=== PATIENT | male | born 1960 | race Caucasian/White ===

== ENCOUNTER 2016-09-02 12:06 | Inpatient (IN) | payer BC ==
[2016-08-30 16:27] LABS: BASOPHILS 0.6 %; BASOPHILS ABSOLUTE 0.04 10/3/uL (0.0-0.16); EOSINOPHILS 4.7 %; EOSINOPHILS ABSOLUTE 0.32 10/3/uL (0.0-0.53); HEMATOCRIT 40.1 % (40.0-51.0); HEMOGLOBIN 13.7 g/dL (13.6-17.8); IMMATURE GRANULOCYTES 0.1 %; IMMATURE GRANULOCYTES ABSOLUTE 0.01 10/3/uL (0.0-0.11); LYMPHOCYTES 39.7 %; LYMPHOCYTES ABSOLUTE 2.71 10/3/uL (0.67-4.30); MANUAL DIFF NO %; MEAN CORPUS HGB CONC 34.2 g/dL (32.0-36.0); MEAN CORPUSCULAR HEMOGLOB 32.9 pg (26.0-34.0); MEAN CORPUSCULAR VOLUME 96.4 fL (80-100); MEAN PLATELET VOLUME 11.5 fL (9.2-13.0); MONOCYTES 11.1 %; MONOCYTES ABSOLUTE 0.76 10/3/uL (0.21-1.20); NEUTROPHILS 43.8 %; NEUTROPHILS ABSOLUTE 2.98 10/3/uL (2.02-8.40); PLATELET COUNT 155 10/3/uL (150-400); RBC DISTRIBUTION WIDTH 12.8 % (12.0-16.0); RED CELL COUNT 4.16 10/6/uL (4.7-6.1); WHITE BLOOD CELLS 6.8 10/3/uL (4.5-10.5)
[2016-08-30 16:37] LABS: PARTIAL THROMBO TIME 27.5 SEC (22.5-37.2); PROTIME (NOT ORD) 13.1 SEC (12.0-14.5)
[2016-08-30 16:42] LABS: ASCORBIC ACID (UR NOT ORDER) NEG (NEG); BILIRUBIN, URINE NEGATIVE (NEG); KETONE, URINE NEGATIVE (NEG); LEUKOCYTE ESTERASE(NOT OR NEG (NEG); WBC (NOT ORDERED) (RFLEX) < 1 (0-5)
[2016-08-30 16:46] LABS: A/G RATIO 1.1 (0.7-1.9); ALBUMIN 3.9 G/DL (3.5-5.0); ALKALINE PHOSPHATASE 76 U/L (45-117); BUN (BLOOD UREA NITROGEN) 13 MG/DL (6-23); CALCIUM, SERUM 8.4 MG/DL (8.5-10.4); CHLORIDE, SERUM 104 MMOL/L (96-112); CO2 (CARBON DIOXIDE) 29 MMOL/L (24-34); CREATININE 1.03 MG/DL (0.70-1.30); GFR AFRICAN AMERICAN 93 ML/MIN (>=60); GFR NON AFRICAN AMERICAN 80 ML/MIN (>=60); GLOBULIN 3.6 G/DL (2.5-4.1); GLUCOSE, SERUM 102 MG/DL (60-99); POTASSIUM, SERUM 4.2 MMOL/L (3.5-5.3); SGOT(AST) 21 U/L (5-40); SGPT(ALT) 28 U/L (5-65); SODIUM, SERUM 142 MMOL/L (135-148); TOTAL BILIRUBIN 0.3 MG/DL (0-1.2); TOTAL PROTEIN 7.5 G/DL (6.0-8.5)
--- NOTE | ~2016-09-02 | HP ---
History And Physical [id number] [place]. [address] NAME: EDUARDO JACKSON : 58 STATUS : ADM IN [facility]#: [id number] AGE: 56 ADM/REG DATE : 09/02/16 MR#: [id number] REPORT SERV DATE: 09/02/16 DICTATED BY: ARVIN RUIZ III DATE: 09/02/16 REPORT STATUS : Draft TRANSCRIBED BY: ANKIT DATE: 09/02/16 DATE OF ADMISSION: 09/02/2016 CHIEF COMPLAINT: Left hip pain. HISTORY: The patient is a 56-year-old black male, who complains of pain in his left hip and has so for many years. It has gotten progressively worse in the last six months to a year. He works at [employer] and is on his feet all day long, walking a long distance. He is now having a difficult time walking short distances. He complained of rest pain, night pain, all unrelieved with nonsteroidal anti-inflammatories, particularly Aleve and Naprosyn with minimal results. X-rays confirmed advanced osteoarthritis of his left hip, and he is admitted for left total hip arthroplasty. Risks, benefits, and expected outcomes have been explained, but not limited to blood clots, infection, neurovascular injuries, limb length discrepancies either real or perceived, postoperative dislocations, intraoperative fractures, and component failures. PAST MEDICAL HISTORY: Negative for high blood pressure, diabetes, liver, lung, or kidney problems. He does have a history of shortness of breath and swelling of the ankles. PREVIOUS SURGERIES: None. MEDICATIONS: Include naproxen, Aleve, methocarbamol, and aspirin. REVIEW OF SYSTEMS: Occasional alcohol and he smokes a pack a week. PHYSICAL EXAMINATION: GENERAL: He is alert and oriented x3. VITAL SIGNS: Stable. HEENT: Normocephalic, atraumatic. Pupils are equal, round, and reactive to light and accommodation. Extraocular muscles are intact. NECK: Supple. CHEST: Clear. HEART: Regular rate and rhythm without murmur. ABDOMEN: Benign, soft, and nontender. Positive bowel sounds. ORTHOPEDIC: Examination reveals marked tenderness to his left hip. He has flexion limited to about 7 degrees, internal rotation 10, external rotation 20, abduction 25, adduction 20. Could not do a [id number]-rh-[id number] positioning secondary to pain and loss of motion. He has pain with his passive range of motion. IMAGING: X-rays reveal advanced osteoarthritis of his left hip with efda-[id number] deformity. PLAN: Admission for left total hip arthroplasty. History And Physical [address] [place]. [facility] [place] [address] NAME: EDUARDO JACKSON : 58 STATUS : ADM IN [facility]#: [id number] AGE: 56 ADM/REG DATE : 09/02/16 MR#: [id number] REPORT SERV DATE: 09/02/16 DICTATED BY: ARVIN RUIZ III DATE: 09/02/16 REPORT STATUS : Draft TRANSCRIBED BY: MODL DATE: 09/02/16 ADRIANNA/ANKIT Arvin Ruiz III, M.D. / [id number] CC: Arvin Ruiz III, M.D.
--- NOTE | ~2016-09-02 | OP ---
Record Of Operation [facility] [address] [place]. [address] NAME: EDUARDO JACKSON : 58 STATUS : ADM IN PAT#: [id number] AGE: 56 ADM/REG DATE : 09/02/16 MR#: [id number] REPORT SERV DATE: 09/02/16 DICTATED BY: ARVIN RUIZ III DATE: 09/02/16 REPORT STATUS : Draft TRANSCRIBED BY: MODL DATE: 09/02/16 DATE OF PROCEDURE: 09/02/2016 PREOPERATIVE DIAGNOSIS: Advanced osteoarthritis, left hip. POSTOPERATIVE DIAGNOSIS: Advanced osteoarthritis, left hip. SURGICAL PROCEDURE PERFORMED: Left total hip arthroplasty using the DePuy system with a size 56 mm Dwight cup, size 7, 7 stem with a 36 mm 1.5 ceramic head ball and a +4 polyethylene liner. SURGEON: Arvin Ruiz M.D. INDIAN NANNY: Braxton. ANESTHESIA: General. ANTIBIOTICS: Ancef 2 g. COMPLICATIONS: None. ESTIMATED BLOOD LOSS: 100 mL. CRYSTALLOID: 1200 mL. DRAINS: None. TRANEXAMIC ACID: 2 g. PROCEDURE IN DETAIL: The patient was brought to the operative room, placed on the table in supine position. and general anesthesia was induced. The patient was positioned in the right lateral decubitus position, and left hip and lower extremity were entirely prepped and draped in the usual sterile fashion. Assuring good anesthesia, a standard lateral incision was made directly over the left hip for approximately 6 inches directly over the greater trochanter in line with the femur. The iliotibial band was incised and self-retaining Charnley retractors were placed in the wound. Anterior one-third abductors were taken off their attachment to the greater trochanter with Bovie electrocautery exposing the femoral neck and head. The femoral head was dislocated with a bone hook with gentle longitudinal traction and external rotation. Femoral neck osteotomy was made approximately 30 mm from the center of the head. Hohmann retractors were placed around the acetabulum in 3, 6, and 9 o'clock position. Transverse ligament was debrided along with the acetabular labrum and pulvinar. Serial reamers were utilized starting with a 45 going up to a size 55. A 56 mm Dwight cup was impacted 45 degrees horizontal with 10 to 15 degrees of anteversion. A hole eliminator was next placed followed by a +4 polyethylene liner locked into the metal- backed cup. Attention was turned towards the femoral side. The hip was flexed and externally rotated in a sterile pouch off the front of the table. A [employer] cutter was used Record Of Operation [id number] [place]. [address] NAME: EDUARDO JACKSON : 58 STATUS : ADM IN PAT#: [id number] AGE: 56 ADM/REG DATE : 09/02/16 MR#: [id number] REPORT SERV DATE: 09/02/16 DICTATED BY: ARVIN RUIZ III DATE: 09/02/16 REPORT STATUS : Draft TRANSCRIBED BY: MODL DATE: 09/02/16 in the greater trochanter followed by a T-handled reamer to enter the femoral canal. Power reamers were utilized starting with a size 4 going up to a size 6-7. Serial broaches were utilized starting with a 4 going up to a size 7. The trial broach was left in and a 1.5, 36 mm head ball was added. Hip was reduced. Good range of motion and stability was noted. Trial broach was removed and the real size 7 porous-coated stem was impacted with excellent fixation. A 1.5, 36 mm ceramic head ball was added to the Muller taper trunnion. Hip was reduced, and again, the limb lengths were checked and noted to be symmetrical. Good range of motion was noted. Thorough irrigation was carried out with pulse lavage system. Anterior one-third abductors reattached to the greater trochanter #5 FiberWire x4, reinforced #1 Vicryl suture. The iliotibial band was repaired with interrupted figure-of- eight #1 Vicryl suture. 60 mL of 0.5% Marcaine solution cocktail was injected into the hip for postoperative pain control. Subcutaneous tissue was closed with 2-0 Vicryl and skin was closed using priscilla. Sterile Aquacel dressing was applied. The patient tolerated the procedure well and brought to the recovery room in satisfactory condition. ADRIANNA/ANKIT Arvin Ruiz III, M.D. / [id number] CC: Arvin Ruiz III, M.D.
[~2016-09-02 12:06] MED LIST: ALEVE220 MG PO; NAP500 PO
[2016-09-03 04:55] LABS: HEMATOCRIT 36.3 % (40.0-51.0); HEMOGLOBIN 12.2 g/dL (13.6-17.8)
[2016-09-03] MEDS ORDERED: PERCOCET 10/3251 TAB PO (14:30)
[2016-09-03] MEDS ORDERED: ELIQUIS 2.5 MG2.5 MG PO (14:30)
== END 2016-09-03 15:35 | disposition home health service (06) | DRG 470 ==
LOC: SDC/OF 12:06 → PACU 15:40 → 3JRC 16:35
PROVIDERS: Orthopaedic Surgery
PROC: 0SRB02A Replacement of Left Hip Joint with Metal on Polyethylene Synthetic Substitute, Uncemented, Open Approach (ICD-10-PCS; principal; 2016-09-02 13:00)
DX: M16.12 Unilateral primary osteoarthritis, left hip (principal); Z87.891 Personal history of nicotine dependence; Z79.82 Long term (current) use of aspirin
CPT/HCPCS: 71020; 72170; 80053; 81001; 85014; 85018; 85025; 85610; 85730; 87641; 88304; 88311; 93005; 97110-GP; 97116-GP; 97161-GP; 97165-GO; 97535-GO; A9270-GY; C1713; C1776; J0690; J1885; J2250; J2270; J2274; J2405; J2710; J2795; J3010